=== PATIENT | female | born 1990 | race Caucasian/White ===

== ENCOUNTER 2020-02-02 11:38 | Emergency (ER) | payer OTHER ==
[2020-02-02 12:02] VITALS: RESP 18; TEMP 97.3
--- NOTE | 2020-02-02 12:12 | ED ---
General Adult HPI - General Chief complaint: Psychiatric Symptoms Stated complaint: Mental Health Time Seen by Provider: 02/02/20 11:47 Source: patient, police, RN notes reviewed, old records reviewed Mode of arrival: EMS Limitations: no limitations - History of Present Illness Initial comments: 29-year-old female patient to ED for psychiatric evaluation. Patient reports that she was previously a methamphetamine user however has not been using for over one week. She reports that her grandmother has been condescending to her and it upset her and that this morning she posted on Facebook that she wanted to kill herself. She denies any current suicidal homicidal ideations. Reports that she was just upset. Denies any plan. Denies any physical complaints. Denies . Systemic: Pt denies fatigue, fever/chills, rash. Pt denies weakness, night sweats, weight loss. Neuro: Pt denies headache, visual disturbances, syncope or pre-syncope. HEENT: Pt denies ocular discharge or irritation, otalgia, rhinorrhea, pharyngitis or notable lymphadenopathy. Cardiopulmonary: Pt denies chest pain, SOB, heart palpitations, dyspnea on exertion. Abdominal/GI: Pt denies abdominal pain, n/v/d. : Pt denies dysuria, burning w/ urination, frequency/urgency. Denies new onset urinary or bowel incontinence. MSK: Pt denies myalgia, loss of strength or function in extremities. Neuro: Pt denies new onset weakness, paresthesias. - Related Data Home Medications Medication Instructions Recorded Confirmed No Known Home Medications 02/02/20 02/02/20 Allergies Allergy/AdvReac Type Severity Reaction Status Date / Time No Known Allergies Allergy Verified 02/02/20 12:21 Review of Systems ROS Statement: Those systems with pertinent positive or pertinent negative responses have been documented in the HPI. ROS Other: All systems not noted in ROS Statement are negative. Past Medical History Past Medical History: No Reported History History of Any Multi-Drug Resistant Organisms: None Reported Additional Past Surgical History / Comment(s): bladder surgery, eye surgery Past Psychological History: Anxiety, Depression Smoking Status: Current every day smoker Past Alcohol Use History: Occasional Past Drug Use History: Marijuana, Methamphetamine General Exam - General Exam Comments Initial Comments: Constitutional: NAD, AOX3, Pt has pleasant affect. HEENT: NC/AT, trachea midline, neck supple, no lymphadenopathy. External ears appear normal, without discharge. Mucous membranes moist. Eyes PERRLA, EOM intact. There is no scleral icterus. No pallor noted. Cardiopulmonary: RRR, no murmurs, rubs or gallops, no JVD noted. Lungs CTAB in anterior and posterior cleary. No peripheral edema. Abdominal exam: Abdomen soft and non-distended. Abdomen non-tender to palpation in all 4 quadrants. Bowel sounds active in LLQ. No hepatosplenomegaly. No ecchymosis Neuro: CN II-XII grossly intact. No nuchal rigidity. No raccon eyes, no tse sign, no hemotympanum. No cervical spinal tenderness. MSK: Full active ROM in upper and lower extremities. Limitations: no limitations Course Vital Signs 02/02/20 11:49 Temperature 97.3 F L Pulse Rate 105 H Respiratory 18 Rate Blood Pressure 128/80 O2 Sat by Pulse 96 Oximetry Medical Decision Making - Medical Decision Making 29 year old female patient to ED with a suicidal statement on facebook. Patient declines any suicidal ideations at this time. Denies any physical complaints. Evaluated by emergency psychiatric services recommended for discharge and outpatient follow-up. Case discussed with Dr. Aguirre Disposition Clinical Impression: Depression Disposition: HOME SELF-CARE Condition: Stable Instructions (If sedation given, give patient instructions): Depression (ED) Additional Instructions: Follow up with [facility] and outpatient services as directed. Follow up with PCP in 1- 2 days. Return to ED with any worsening symptoms. Is patient prescribed a controlled substance at d/c from ED?: No Referrals: None,Stated [Primary Care Provider] - 1-2 days
[2020-02-02 14:51] VITALS: BP 118/67; PULSE 87
== END 2020-02-02 14:51 | disposition home or self-care (01) ==
LOC: EC 11:38
DX: R45.851 Suicidal ideations (principal); F32.9 Major depressive disorder, single episode, unspecified; F17.200 Nicotine dependence, unspecified, uncomplicated
CPT/HCPCS: 82075; 99285

== ENCOUNTER → 2021-05-19 | Outpatient (CLI) | payer OTHER ==
--- NOTE | 2021-05-19 15:57 | US ---
EXAMINATION TYPE: US pelvic complete DATE OF EXAM: 05/19/2021 COMPARISON: NONE CLINICAL HISTORY: 31-year-old female N85.2 ENLARGED UTERUS. TECHNIQUE: Transabdominal sonographic images of the pelvis were acquired. Date of LMP: Unknown. Patient states end of march 2021. FINDINGS: EXAM MEASUREMENTS: Uterus: 12.6 x 9.3 x 8.4 cm Endometrial Stripe: 0.7 cm Right Ovary: 2.7 x 1.7 x 1.8 cm Left Ovary: 3.4 x 0.2 x 2.1 cm 1. Uterus: Anteverted. Heterogeneous mass measuring 7.2 x 6.3 x 5.1cm centered within the posterio r fundus/body of the uterus. 2. Endometrium: The large fibroid as mass effect displacing the stripe anteriorly. 3. Right Ovary: wnl 4. Left Ovary: wnl 5. Bilateral Adnexa: wnl 6. Posterior cul-de-sac: wnl IMPRESSION: 1. Large 7.2 cm fibroid centered in the posterior uterine fundus/body has mass effect on to the endom etrial stripe, displacing it anteriorly. Suspect primarily intramural location but probably with a br oad-based submucosal component. 2. Stripe measuring 7 mm
== END | disposition home or self-care (01) ==
LOC: RADUSWWP 12:23
PROVIDERS: ATTEND Obstetrics & Gynecology
DX: D25.9 Leiomyoma of uterus, unspecified (principal)
CPT/HCPCS: 76856

== ENCOUNTER → 2021-11-17 | Outpatient (CLI) | payer OTHER ==
--- NOTE | 2021-11-17 14:45 | US ---
EXAMINATION TYPE: US pelvis complete transvag DATE OF EXAM: 11/17/2021 COMPARISON: 05/19/2021 CLINICAL HISTORY: 31-year-old female D25.9 LEIOMYOMA OF UTERUS. TECHNIQUE: Transabdominal sonographic images of the pelvis were acquired. Transvaginal sonographic i mages were medically necessary to better assess the following anatomy: endometrial stripe. Date of LMP: 11/08/2021 FINDINGS: EXAM MEASUREMENTS: Uterus: 14.4 x 8.7 x 11.0 cm Endometrial Stripe: 0.9 cm Right Ovary: 2.5 x 1.9 x 2.1 cm Left Ovary: 2.6 x 1.7 x 1.8 cm 1. Uterus: Anteverted. Uterus is enlarged and heterogeneous, large posterior fibroid measuring 7.5 x 6.5 x 8.3 cm. This likely has a large submucosal component. 2. Endometrium: displaced anteriorly. 3. Right Ovary: wnl, only seen transabdominally. 4. Left Ovary: wnl, only seen transabdominally. 5. Bilateral Adnexa: wnl 6. Posterior cul-de-sac: no free fluid IMPRESSION: Bulky fibroid uterus. There is a large 8.3 cm fibroid (versus 7.2 cm, previously) filling the posteri or fundus and body with mass effect onto the endometrium displacing it anteriorly. Possible large sub mucosal component. If more detailed assessment is desired, female pelvic MRI can be considered.
== END | disposition home or self-care (01) ==
LOC: RADUSWWP 08:52
PROVIDERS: ATTEND Obstetrics & Gynecology
DX: D25.9 Leiomyoma of uterus, unspecified (principal)
CPT/HCPCS: 76830; 76856

== ENCOUNTER 2024-09-09 17:22 | Inpatient (IN) | payer OTHER ==
--- NOTE | 2024-09-09 18:07 | ED ---
General Adult HPI - General Chief complaint: Extremity Problem,Nontraumatic Stated complaint: Swollen Left Leg Time Seen by Provider: 09/09/24 17:32 Source: patient, family, RN notes reviewed Mode of arrival: ambulatory Limitations: no limitations - History of Present Illness Initial comments: 34-year-old female presents to the emergency department for evaluation of left lower extremity swelling and pain. Patient notes that this started this morning. She states that over the last 3 days she has had some discomfort in her left leg but noticed that it became extremely swollen today this prompted her presentation to urgent care. The patient was sent to the emergency department for further evaluation. - Related Data Previous Rx's Medication Instructions Recorded Apixaban [Eliquis Starter Pack 5 - 10 mg PO DIRECTED 30 Days 09/11/24 (for VTE)] #1 each Allergies Allergy/AdvReac Type Severity Reaction Status Date / Time No Known Allergies Allergy Verified 09/10/24 10:39 Review of Systems ROS Statement: Those systems with pertinent positive or pertinent negative responses have been documented in the HPI. ROS Other: All systems not noted in ROS Statement are negative. Past Medical History Past Medical History: No Reported History Additional Past Medical History / Comment(s): fibroids uterine History of Any Multi-Drug Resistant Organisms: None Reported Additional Past Surgical History / Comment(s): bladder surgery, eye surgery Past Psychological History: Anxiety, Depression Smoking Status: Current every day smoker Past Alcohol Use History: Occasional Past Drug Use History: Marijuana, Methamphetamine General Exam Limitations: no limitations General appearance: alert, in no apparent distress Head exam: Present: atraumatic, normocephalic, normal inspection Eye exam: Present: normal appearance, PERRL, EOMI. Absent: scleral icterus, conjunctival injection, periorbital swelling ENT exam: Present: normal exam, mucous membranes moist Respiratory exam: Present: wheezes. Absent: respiratory distress, rales, rhonchi, stridor Cardiovascular Exam: Present: regular rate, normal rhythm, normal heart sounds. Absent: systolic murmur, diastolic murmur, rubs, gallop, clicks Extremities exam: Present: full ROM, tenderness, normal capillary refill, calf tenderness, other (DP and PT pulses 2+, significant swelling to the left lower extremity). Absent: pedal edema, joint swelling Neurological exam: Present: alert, oriented X3 Psychiatric exam: Present: normal affect, normal mood Skin exam: Present: warm, dry, intact, normal color. Absent: rash Course Vital Signs 09/09/24 09/09/24 17:26 21:37 Temperature 98.9 F Pulse Rate 100 100 Respiratory 20 18 Rate Blood Pressure 101/69 120/78 O2 Sat by Pulse 98 100 Oximetry Medical Decision Making - Medical Decision Making Was pt. sent in by a medical professional or institution (, PA, [employer] PORTAL DEVELOPER, urgent care, hospital, or care home...) When possible be specific @ -No Did you speak to anyone other than the patient for history (EMS, parent, family, police, friend...)? What history was obtained from this source @ -No Did you review nursing and triage notes (agree or disagree)? Why? @ -I reviewed and agree with nursing and triage notes Were old charts reviewed (outside hosp., previous admission, EMS record, old EKG, old radiological studies, urgent care reports/EKG's, care home records)? Report findings @ -No old charts were reviewed Differential Diagnosis (chest pain, altered mental status, abdominal pain women, abdominal pain men, vaginal bleeding, weakness, fever, dyspnea, syncope, headache, dizziness, GI bleed, back pain, seizure, CVA, palpatations, mental health, musculoskeletal)? @ -Differential Musculoskeletal Muscular strain, contusion, ligament sprain, fracture, arthritis, septic arthritis, bursitis, cellulitis, muscle spasm, nerve compression, DVT, arterial occlusion, herpes zoster, electrolyte abnormality, tumor.... This is not meant to be in all inclusive list EKG interpreted by me (3pts min.). @ -EKG@1941 to sinus rhythm rate of 90, GA 150, QRS 85, QT/QTc 347/395 X-rays interpreted by me (1pt min.). @ -None done CT interpreted by me (1pt min.). @ -CTA of the chest reveals no evidence of PE U/S interpreted by me (1pt. min.). @ -Ultrasound of the left lower extremity reveals DVT of the common iliac, and common femoral, femoral vein, popliteal vein and the proximal calf veins. What testing was considered but not performed or refused? (CT, X-rays, U/S, labs)? Why? @ -None What meds were considered but not given or refused? Why? @ -None Did you discuss the management of the patient with other professionals (professionals i.e. , PA, [employer] PORTAL DEVELOPER, lab, RT, psych nurse, oncology social work, product design manager, teacher, risk control officer, caser up)? Give summary @ -I discussed the case with vascular surgery, Dr. Hernandez who recommends admission with heparin drip Case discussed with [facility] was accepting of the admission Was smoking cessation discussed for >3mins.? @ -No Was critical care preformed (if so, how long)? @ -No Were there social determinants of health that impacted care today? How? (Homelessness, low income, unemployed, alcoholism, drug addiction, transpor tation, low edu. Level, literacy, decrease access to med. care, care home, rehab)? @ -No Was there de-escalation of care discussed even if they declined (Discuss DNR or withdrawal of care, Hospice)? DNR status @ -No What co-morbidities impacted this encounter? (DM, HTN, Smoking, COPD, CAD, Cancer, CVA, ARF, Chemo, Hep., AIDS, mental health diagnosis, sleep apnea, morbid obesity)? @ -None Was patient admitted / discharged? Hospital course, mention meds given and route, prescriptions, significant lab abnormalities, going to OR and other pertinent info. @ -Admitted. Patient presented emergency department for evaluation of left lower extremity pain and swelling. Laboratory studies obtained revealing anemia with a hemoglobin of 7.9. Otherwise nonactionable. Ultrasound of the left lower extremity reveals an extensive DVT from the common iliac, common femoral, femoral vein. CTA of the chest performed revealing no evidence of PE. I discussed case with vascular surgery, Dr. Hernandez who recommends admission and placing the patient on a heparin drip. The case was discussed with [facility] was ac cepting of the admission. Case discussed with Dr. Johnson Undiagnosed new problem with uncertain prognosis? @ -No Drug Therapy requiring intensive monitoring for toxicity (Heparin, Nitro, Insulin, Cardizem)? @ -heparin drip Were any procedures done? @ -No Diagnosis/symptom? @ -DVT Acute, or Chronic, or Acute on Chronic? @ -Acute Uncomplicated (without systemic symptoms) or Complicated (systemic symptoms)? @ -Complicated Side effects of treatment? @ -No Exacerbation, Progression, or Severe Exacerbation? @ -No Poses a threat to life or bodily function? How? (Chest pain, USA, ID, pneumonia, PE, COPD, DKA, ARF, appy, cholecystitis, CVA, Diverticulitis, Homicidal, Suicidal, threat to staff... and all critical care pts) @ -DVT - Lab Data Result diagrams: 09/13/24 06:35 09/12/24 05:57 Lab Results 09/09/24 09/09/24 09/09/24 Range/Units 18:33 18:33 18:33 WBC 9.52 (4.50-10.00) 10*3/uL RBC 3.70 L (4.10-5.20) 10*6/uL Hgb 7.9 L (12.0-15.0) g/dL Hct 25.7 L (37.2-46.3) % MCV 69.5 L (80.0-97.0) fL MCH 21.4 L (27.0-32.0) pg MCHC 30.7 L (32.0-37.0) g/dL Plt Count 354 (140-440) 10*3/uL MPV 8.9 L (9.5-12.2) fL Immature Gran % (Auto) 0.3 % Neutrophils % 67.7 % Lymphocytes % 23.5 % Monocytes % 4.8 % Eosinophils % 3.5 % Basophils % 0.2 % Immature Gran # 0.03 (0.00-0.04) 10*3/uL Neutrophils # 6.44 (1.80-7.70) 10*3/uL Lymphocytes # 2.24 (0.90-5.00) 10*3/uL Monocytes # 0.46 (0.20-1.00) 10*3/uL Eosinophils # 0.33 (0.04-0.35) 10*3/uL Basophils # 0.02 (0.00-0.10) 10*3/uL PT 10.7 (10.0-12.5) sec INR 1.0 (<1.2) APTT 22.1 (22.0-30.0) sec Sodium 137 (137-145) mmol/L Potassium 3.8 (3.5-5.1) mmol/L Chloride 102 (98-107) mmol/L Carbon Dioxide 21 L (22-30) mmol/L Anion Gap 14 mmol/L BUN 14 (7-17) mg/dL Creatinine 0.64 (0.52-1.04) mg/dL Est GFR (CKD-EPI)AfAm >90 (>60 ml/min/1.73 sqM) Est GFR (CKD-EPI)NonAf >90 (>60 ml/min/1.73 sqM) Glucose 92 (74-99) mg/dL Calcium 10.3 H (8.4-10.2) mg/dL Total Bilirubin 0.4 (0.2-1.3) mg/dL AST 19 (14-36) U/L ALT 13 (4-34) U/L Alkaline Phosphatase 69 (38-126) U/L Total Protein 7.6 (6.3-8.2) g/dL Albumin 4.7 (3.5-5.0) g/dL Urine HCG, Qual (Not Detectd) 09/09/24 Range/Units 19:13 WBC (4.50-10.00) 10*3/uL RBC (4.10-5.20) 10*6/uL Hgb (12.0-15.0) g/dL Hct (37.2-46.3) % MCV (80.0-97.0) fL MCH (27.0-32.0) pg MCHC (32.0-37.0) g/dL Plt Count (140-440) 10*3/uL MPV (9.5-12.2) fL Immature Gran % (Auto) % Neutrophils % % Lymphocytes % % Monocytes % % Eosinophils % % Basophils % % Immature Gran # (0.00-0.04) 10*3/uL Neutrophils # (1.80-7.70) 10*3/uL Lymphocytes # (0.90-5.00) 10*3/uL Monocytes # (0.20-1.00) 10*3/uL Eosinophils # (0.04-0.35) 10*3/uL Basophils # (0.00-0.10) 10*3/uL PT (10.0-12.5) sec INR (<1.2) APTT (22.0-30.0) sec Sodium (137-145) mmol/L Potassium (3.5-5.1) mmol/L Chloride (98-107) mmol/L Carbon Dioxide (22-30) mmol/L Anion Gap mmol/L BUN (7-17) mg/dL Creatinine (0.52-1.04) mg/dL Est GFR (CKD-EPI)AfAm (>60 ml/min/1.73 sqM) Est GFR (CKD-EPI)NonAf (>60 ml/min/1.73 sqM) Glucose (74-99) mg/dL Calcium (8.4-10.2) mg/dL Total Bilirubin (0.2-1.3) mg/dL AST (14-36) U/L ALT (4-34) U/L Alkaline Phosphatase (38-126) U/L Total Protein (6.3-8.2) g/dL Albumin (3.5-5.0) g/dL Urine HCG, Qual Not Detected (Not Detectd) Disposition Clinical Impression: DVT (deep venous thrombosis) Disposition: ADMITTED IP TO THIS [facility] Condition: Stable Is patient prescribed a controlled substance at d/c from ED?: No
[2024-09-09 19:00] LABS: Basophils # (A) 0.02 10*3/uL (0.00-0.10); Basophils % (A) 0.2 %; Eosinophils # (A) 0.33 10*3/uL (0.04-0.35); Eosinophils % (A) 3.5 %; HCT 25.7 % (37.2-46.3); HGB 7.9 g/dL (12.0-15.0); Lymphocytes # (A) 2.24 10*3/uL (0.90-5.00); Lymphocytes % (A) 23.5 %; MCH 21.4 pg (27.0-32.0); MCHC 30.7 g/dL (32.0-37.0); MCV 69.5 fL (80.0-97.0); Monocytes # (A) 0.46 10*3/uL (0.20-1.00); Monocytes % (A) 4.8 %; Neutrophils # (A) 6.44 10*3/uL (1.80-7.70); Neutrophils % (A) 67.7 %; Platelet Count 354 10*3/uL (140-440); RBC 3.70 10*6/uL (4.10-5.20); RDW 18.8 % (11.5-14.5); WBC 9.52 10*3/uL (4.50-10.00)
[2024-09-09 19:10] LABS: INR 1.0 (<1.2); Partial Thromboplastin Time 22.1 sec (22.0-30.0); Prothrombin Time 10.7 sec (10.0-12.5)
[2024-09-09 19:14] LABS: ALT 13 U/L (4-34); AST 19 U/L (14-36); African American GFR (CKD) >90 (>60 ml/min/1.73 sqM); Albumin 4.7 g/dL (3.5-5.0); Alkaline Phosphatase 69 U/L (38-126); Anion Gap 14 mmol/L; Blood Urea Nitrogen 14 mg/dL (7-17); Calcium 10.3 mg/dL (8.4-10.2); Carbon Dioxide 21 mmol/L (22-30); Chloride 102 mmol/L (98-107); Glucose 92 mg/dL (74-99); Non-African American GFR(CKD) >90 (>60 ml/min/1.73 sqM); Potassium 3.8 mmol/L (3.5-5.1); Sodium 137 mmol/L (137-145); Total Protein 7.6 g/dL (6.3-8.2)
--- NOTE | 2024-09-09 21:00 | US ---
EXAMINATION TYPE: US venous doppler duplex LE LT DATE OF EXAM: 09/09/2024 8:46 PM COMPARISON: NONE CLINICAL INDICATION: Female, 34 years old with history of swelling, pain; Left leg pain and swelling TECHNIQUE: The lower extremity deep venous system is examined utilizing real time linear array sonog jasmyn with graded compression, doppler sonography and color-flow sonography. Grayscale, color doppler , spectral doppler imaging performed of the deep veins of the lower extremities FINDINGS: SIDE PERFORMED: Left VESSELS IMAGED: Common Femoral Vein Deep Femoral Vein Greater Saphenous Vein * Femoral Vein Popliteal Vein Small Saphenous Vein * Proximal Calf Veins (* superficial vessels) Left Leg: Occlusive thrombus involving the left external iliac vein, common femoral vein, femoral ve in and popliteal veins. Additionally, there is occlusive thrombus in the visualized proximal calf vei ns. IMPRESSION: Occlusive deep vein thrombosis throughout the left lower extremity as described above. [facility], , 09/09/2024 8:58 PM
[2024-09-09] MEDS: SODIUM CHLORIDE 0.9% 1,000 ML IV ONE (21:22)
--- NOTE | 2024-09-09 22:17 | CT ---
EXAMINATION TYPE: CT chest angio for PE DATE OF EXAM: 09/09/2024 9:36 PM COMPARISON: None. CLINICAL INDICATION: Female, 34 years old with history of +DVT, dyspnea; +DVT, dyspnea TECHNIQUE/CONTRAST: CTA scan of the thorax is performed with IV Contrast, patient injected with 100 ml mL of Isovue 370, MIP images are created and reviewed these are created on a separate workstation.. CT DLP: 226 mGycm, Automated exposure control for dose reduction was used. FINDINGS: Pulmonary Artery: There is no evidence for a filling defect within the pulmonary vasculature to sugge st acute pulmonary embolism. The pulmonary artery is of normal size. Internal note of a ductus dive rticulum. Lungs/Pleura: No evidence of focal consolidation, pleural effusion or pneumothorax. Airway: Large airways are patent. Heart: Heart is within normal limits for size. Vasculature: No evidence of aortic aneurysm. Mediastinum: No gross evidence of adenopathy. Musculoskeletal: No acute osseous abnormalities Soft Tissues/lymph nodes: Unremarkable. Lower neck: No significant findings. Upper Abdomen: No significant findings. IMPRESSION: No evidence of acute pulmonary embolism or acute pulmonary pathology. [facility], , 09/09/2024 10:14 PM
[2024-09-09] MEDS ORDERED: HEPARIN SODIUM 1,000 UN/ML (10ML VL) IV PRN (22:37)
[2024-09-09] MEDS ORDERED: NALOXONE 0.4 MG/ML 1 ML VIAL IV PRN (22:51)
[2024-09-09] MEDS ORDERED: ONDANSETRON 4 MG/2 ML VIAL IVP PRN (22:51)
[2024-09-09] MEDS ORDERED: HYDROmorphone 1 MG/ML 1 ML SYRINGE IVP PRN (22:51)
[2024-09-09] MEDS: HEPARIN SODIUM 1,000 UN/ML (10ML VL) IV ONE (23:36)
[2024-09-09] MEDS: HEPARIN SOD,PORK IN 0.45% NACL 25,000 UNIT in 0.45% NACL 1 250ML.BAG IV SCH (23:37)
[2024-09-09] MEDS: NICOTINE 14MG/24HR PATCH TRANSDERM STA (23:39)
[2024-09-10] MEDS: HYDROmorphone 0.5 MG/0.5 ML SYRINGE IVP PRN (01:15)
[2024-09-10 06:35] LABS: Basophils # (A) 0.01 10*3/uL (0.00-0.10); Basophils % (A) 0.1 %; Eosinophils # (A) 0.33 10*3/uL (0.04-0.35); Eosinophils % (A) 3.3 %; HCT 21.9 % (37.2-46.3); Lymphocytes # (A) 3.54 10*3/uL (0.90-5.00); Lymphocytes % (A) 35.3 %; MCH 21.9 pg (27.0-32.0); MCHC 31.1 g/dL (32.0-37.0); MCV 70.6 fL (80.0-97.0); Monocytes # (A) 0.49 10*3/uL (0.20-1.00); Monocytes % (A) 4.9 %; Neutrophils # (A) 5.63 10*3/uL (1.80-7.70); Neutrophils % (A) 56.1 %; Platelet Count 332 10*3/uL (140-440); RBC 3.10 10*6/uL (4.10-5.20); RDW 18.6 % (11.5-14.5); WBC 10.03 10*3/uL (4.50-10.00)
[2024-09-10 06:48] LABS: HGB 6.8 g/dL (12.0-15.0)
[2024-09-10 11:15] LABS: HCT 23.1 % (37.2-46.3); HGB 7.0 g/dL (12.0-15.0); MCH 21.4 pg (27.0-32.0); MCHC 30.3 g/dL (32.0-37.0); MCV 70.6 fL (80.0-97.0); Platelet Count 329 10*3/uL (140-440); RBC 3.27 10*6/uL (4.10-5.20); RDW 18.6 % (11.5-14.5); WBC 11.15 10*3/uL (4.50-10.00)
[2024-09-10] MEDS: PANTOPRAZOLE 40 MG/10 ML VIAL IVP SCH (12:06)
--- NOTE | 2024-09-10 13:53 | P.CONS ---
History of Present Illness - Reason for Consult Consult date: 09/10/24 DVT - Chief Complaint Left leg swelling - History of Present Illness Ms. Kulkarni is a 34-year-old woman with a past medical history significant for uterine fibroids for whom hematology is consulted with regards to DVT of the left lower extremity. She noted progressive swelling of the left lower extr emity over the past 3 to 4 days. She initially presented to urgent care and was advised to present to the ED for additional evaluation. Duplex of the left lower extremity revealed occlusive thrombus involving the left external iliac, common femoral, femoral, and popliteal veins in addition to occlusive thrombus in the visualized proximal calf veins. CTA of the chest revealed no evidence of pulmonary embolism. CBC revealed microcytic hypochromic anemia with hemoglobin 7.9 (MCV 69.5, MCH 21.4), WBC 9.52, platelets 354. CMP revealed no acute metabolic abnormalities. She was started on heparin drip with bolus in addition to 1 L bolus of normal saline and admitted to internal medicine for additional management. She has received 0.5 mg of IV Dilaudid x 3 for pain secondary to DVT. Vascular surgery has also been consulted. Hemoglobin this morning was 6.8 with repeat hemoglobin being 7 with 1 unit of packed red blood cells being ordered. Prior to admission, she denies any recent illness, prolonged travel, or trauma. She does have heavy menstrual cycles requiring exchange of pads/tampons every other hour, but denies use of any oral or implantable estrogen-based contraceptives. She denies any prior personal or family history of VTE. She denies any prior episodes of spontaneous miscarriages. She does smoke cigarettes. Review of Systems 14 point review of systems was conducted with pertinent positives and negatives as noted per HPI 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 Medications and Allergies Home Medications Medication Instructions Recorded Confirmed Type No Known Home Medications 02/02/20 09/10/24 History Allergies Allergy/AdvReac Type Severity Reaction Status Date / Time No Known Allergies Allergy Verified 09/10/24 10:39 Physical Exam Vitals: Vital Signs Temp Pulse Pulse Resp BP BP Pulse Ox 09/10/24 09:53 91 14 09/10/24 09:21 91 14 94/61 98 09/10/24 07:15 99/57 09/10/24 04:00 93 14 94/61 99 09/10/24 00:51 98.4 F 97 14 109/69 100 09/10/24 00:23 99.3 F 100 18 117/66 99 09/09/24 21:37 100 18 120/78 100 09/09/24 17:26 98.9 F 100 20 101/69 98 Intake and Output 09/09/24 09/10/24 09/10/24 22:59 06:59 14:59 Intake Total 81.012 0 Balance 81.012 0 Intake: Intake, IV Titration 81.012 0 Amount Heparin Sod,Pork in 0.45% 81.012 0 NaCl 25,000 unit In 0.45 % NaCl 1 250ml.bag @ 18 UNITS/KG/HR 11.022 mls/hr IV .[id number] [facility] Rx#: [id number] Other: Voiding Method Bedside Commode Bedside Commode # Voids 3 Weight 61.235 kg 67.2 kg - Constitutional General appearance: cooperative, no acute distress - EENT No glossitis or scalloped tongue. Pale mucous membranes noted Eyes: EOMI - Respiratory Respiratory: bilateral: CTA - Cardiovascular Rhythm: regular leg Peripheral Edema: left: 2+ - Gastrointestinal General gastrointestinal: no distended, soft - Integumentary Integumentary: pale - Neurologic Neurologic: CNII-XII intact Results CBC & Chem 7: 09/10/24 11:01 09/09/24 18:33 Labs: Abnormal Lab Results - Last 24 Hours (Table) 09/09/24 09/09/24 09/10/24 Range/Units 18:33 18:33 05:42 WBC 10.03 H (4.50-10.00) 10*3/uL RBC 3.70 L 3.10 L (4.10-5.20) 10*6/uL Hgb 7.9 L 6.8 L* (12.0-15.0) g/dL Hct 25.7 L 21.9 L (37.2-46.3) % MCV 69.5 L 70.6 L (80.0-97.0) fL MCH 21.4 L 21.9 L (27.0-32.0) pg MCHC 30.7 L 31.1 L (32.0-37.0) g/dL MPV 8.9 L (9.5-12.2) fL APTT (22.0-30.0) sec Carbon Dioxide 21 L (22-30) mmol/L Calcium 10.3 H (8.4-10.2) mg/dL Crossmatch 09/10/24 09/10/24 09/10/24 Range/Units 05:42 07:22 11:01 WBC 11.15 H (4.50-10.00) 10*3/uL RBC 3.27 L (4.10-5.20) 10*6/uL Hgb 7.0 L (12.0-15.0) g/dL Hct 23.1 L (37.2-46.3) % MCV 70.6 L (80.0-97.0) fL MCH 21.4 L (27.0-32.0) pg MCHC 30.3 L (32.0-37.0) g/dL MPV 9.0 L (9.5-12.2) fL APTT 79.0 H (22.0-30.0) sec Carbon Dioxide (22-30) mmol/L Calcium (8.4-10.2) mg/dL Crossmatch See Detail Assessment and Plan (1) Microcytic hypochromic anemia Current Visit: Yes Status: Acute Code(s): D50.9 - IRON DEFICIENCY ANEMIA, UNSPECIFIED SNOMED Code(s): 44040138 (2) DVT (deep venous thrombosis) Current Visit: Yes Status: Acute Code(s): I82.409 - ACUTE EMBOLISM AND THOMBOS UNSP DEEP VN UNSP LOWER EXTREMITY SNOMED Code(s): 559807398 Plan: #DVT of the left lower extremity, unprovoked - Noted progressive swelling of the left lower extremity over the past 3 to 4 days without any inciting factors - Venous Doppler of the left lower extremity was consistent with DVT of multiple deep veins extending down the leg - CTA of the chest was negative for PE - We did discuss the difference between provoked and unprovoked VTE episodes and the difference this makes in terms of duration of anticoagulation - In addition, she has no known family history of VTE - For now, continue heparin drip pending vascular surgery consultation - If there are no interventions planned, she can be transition to Eliquis twice daily - Hypercoagulable testing will be ordered outpatient - APLS labs will be ordered inpatient today #Microcytic hypochromic anemia - Likely has iron deficiency anemia secondary to menorrhagia - 1 unit of packed red blood cells has been ordered per the primary team - Iron studies in addition to vitamin B12, folic acid, and thyroid profile have been ordered - In the past, she could not tolerate oral iron due to significant nausea and constipation - We discussed that as long as her iron saturation is below 20%, we will arrange for IV iron outpatient Lakesha Stroud MD
--- NOTE | 2024-09-10 15:02 | P.HPIM ---
History of Present Illness H&P Date: 09/10/24 34-year-old female presents to the emergency department for evaluation of left lower extremity swelling and pain. Patient notes that this started this morning. She states that over the last 3 days she has had some discomfort in her left leg but noticed that it became extremely swollen today this prompted her presentation to urgent care. The patient was sent to the emergency department for further evaluation. Vascular surgery and hematology is consulted Blood work completed in the ED reveals WBC of 9.5, hemoglobin of 7.9, platelet count of 354, sodium 137, potassium 3.8, BUN/creatinine 14/0.64, calcium of 10.3 Ultrasound of the left lower extremity reveals an extensive DVT from the common iliac, common femoral, femoral vein. CTA of the chest performed revealing no evidence of PE. Review of Systems REVIEW OF SYSTEMS: CONSTITUTIONAL: No fever, no malaise, no fatigue. HEENT: No recent visual problems or hearing problems. Denied any sore throat. CARDIOVASCULAR: No chest pain, orthopnea, PND, no palpitations, no syncope. PULMONARY: No shortness of breath, no cough, no hemoptysis. GASTROINTESTINAL: No diarrhea, no nausea, no vomiting, no abdominal pain. NEUROLOGICAL: No headaches, no weakness, no numbness. HEMATOLOGICAL: Denies any bleeding or petechiae. GENITOURINARY: Denies any burning micturition, frequency, or urgency. MUSCULOSKELETAL/RHEUMATOLOGICAL: Pain and swelling left leg. ENDOCRINE: Denies any polyuria or polydipsia. The rest of the 14-point review of systems is negative. 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 Medications and Allergies Home Medications Medication Instructions Recorded Confirmed Type No Known Home Medications 02/02/20 09/10/24 History Allergies Allergy/AdvReac Type Severity Reaction Status Date / Time No Known Allergies Allergy Verified 09/10/24 10:39 Physical Exam Vitals: Vital Signs Temp Pulse Pulse Resp BP BP Pulse Ox 09/10/24 09:53 91 14 09/10/24 09:21 91 14 94/61 98 09/10/24 07:15 99/57 09/10/24 04:00 93 14 94/61 99 09/10/24 00:51 98.4 F 97 14 109/69 100 09/10/24 00:23 99.3 F 100 18 117/66 99 09/09/24 21:37 100 18 120/78 100 09/09/24 17:26 98.9 F 100 20 101/69 98 Intake and Output 09/09/24 09/10/24 09/10/24 22:59 06:59 14:59 Intake Total 81.012 0 Balance 81.012 0 Intake: Intake, IV Titration 81.012 0 Amount Heparin Sod,Pork in 0.45% 81.012 0 NaCl 25,000 unit In 0.45 % NaCl 1 250ml.bag @ 18 UNITS/KG/HR 11.022 mls/hr IV .[id number] [facility] Rx#: [id number] Other: Voiding Method Bedside Commode Bedside Commode # Voids 3 Weight 61.235 kg 67.2 kg General appearance: alert, in no apparent distress Head exam: Present: atraumatic, normocephalic, normal inspection Eye exam: Present: normal appearance, PERRL, EOMI. Absent: scleral icterus, conjunctival injection, periorbital swelling ENT exam: Present: normal exam, mucous membranes moist Respiratory exam: Present: wheezes. Absent: respiratory distress, rales, rhonchi, stridor Cardiovascular Exam: Present: regular rate, normal rhythm, normal heart sounds. Absent: systolic murmur, diastolic murmur, rubs, gallop, clicks Extremities exam: Present: full ROM, tenderness, normal capillary refill, calf tenderness, other (DP and PT pulses 2+, significant swelling to the left lower extremity). Absent: pedal edema, joint swelling Neurological exam: Present: alert, oriented X3 Psychiatric exam: Present: normal affect, normal mood Skin exam: Present: warm, dry, intact, normal color. Absent: rash Results CBC & Chem 7: 09/10/24 11:01 09/09/24 18:33 Labs: Abnormal Lab Results - Last 24 Hours (Table) 09/09/24 09/09/24 09/10/24 Range/Units 18:33 18:33 05:42 WBC 10.03 H (4.50-10.00) 10*3/uL RBC 3.70 L 3.10 L (4.10-5.20) 10*6/uL Hgb 7.9 L 6.8 L* (12.0-15.0) g/dL Hct 25.7 L 21.9 L (37.2-46.3) % MCV 69.5 L 70.6 L (80.0-97.0) fL MCH 21.4 L 21.9 L (27.0-32.0) pg MCHC 30.7 L 31.1 L (32.0-37.0) g/dL MPV 8.9 L (9.5-12.2) fL APTT (22.0-30.0) sec Carbon Dioxide 21 L (22-30) mmol/L Calcium 10.3 H (8.4-10.2) mg/dL Crossmatch 09/10/24 09/10/24 Range/Units 05:42 07:22 WBC (4.50-10.00) 10*3/uL RBC (4.10-5.20) 10*6/uL Hgb (12.0-15.0) g/dL Hct (37.2-46.3) % MCV (80.0-97.0) fL MCH (27.0-32.0) pg MCHC (32.0-37.0) g/dL MPV (9.5-12.2) fL APTT 79.0 H (22.0-30.0) sec Carbon Dioxide (22-30) mmol/L Calcium (8.4-10.2) mg/dL Crossmatch See Detail Thrombosis Risk Factor Assmnt - Choose All That Apply Any of the Below Risk Factors Present?: Yes Each Factor Represents 1 point: Obesity (BMI >25), Swollen legs (current) Other Risk Factors: No Other congenital or acquired thrombophilia - If yes, enter type in comment: No Thrombosis Risk Factor Assessment Total Risk Factor Score: 2 Thrombosis Risk Factor Assessment Level: Low Risk Assessment and Plan Assessment: Acute DVT left lower extremity; unprovoked Ultrasound of the left lower extremity reveals an extensive DVT from the common iliac, common femoral, femoral vein. - Patient has been placed on IV heparin; neurosurgery on board - Given young age and unprovoked extensive DVT, will consult hematology Severe symptomatic anemia; Patient does report history of iron deficiency anemia secondary to menorrhagia -Patient has received 1 unit of packed RBC - Hemoglobin of 7.2 prior to blood transfusion Will monitor H&H every 6 hours Order iron studies Hypercalcemia; likely secondary to dehydration; continue with IV fluid; monitor electrolytes DVT prophylax; IV heparin CODE STATUS; full code
[2024-09-10 17:36] LABS: HCT 27.6 % (37.2-46.3); HGB 8.5 g/dL (12.0-15.0); MCH 22.2 pg (27.0-32.0); MCHC 30.8 g/dL (32.0-37.0); MCV 72.1 fL (80.0-97.0); Platelet Count 339 10*3/uL (140-440); RBC 3.83 10*6/uL (4.10-5.20); RDW 18.7 % (11.5-14.5); WBC 8.71 10*3/uL (4.50-10.00)
--- NOTE | 2024-09-10 19:54 | P.PN ---
Progress Note - Text Progress Note Date: 09/10/24 Reviewed ultrasound of the lower extremity. Significant thrombus noted extending from the iliac vein to the tibial veins with symptoms. Patient may benefit from thrombectomy which may be performed tomorrow if medically stable. Would continue heparin drip as of now and will discuss procedure with patient tomorrow morning. If stable from a medical perspective then would plan for possible percutaneous thrombectomy tomorrow.
[2024-09-10 23:14] LABS: HCT 24.5 % (37.2-46.3); HGB 7.8 g/dL (12.0-15.0); MCH 22.5 pg (27.0-32.0); MCHC 31.8 g/dL (32.0-37.0); MCV 70.6 fL (80.0-97.0); Platelet Count 311 10*3/uL (140-440); RBC 3.47 10*6/uL (4.10-5.20); RDW 18.4 % (11.5-14.5); WBC 9.75 10*3/uL (4.50-10.00)
[2024-09-11 00:27] LABS: Ferritin 7.9 ng/mL (10.0-291.0); Iron 13 UG/DL (50-170); Total Iron Binding Capacity 466 UG/DL (228-460); Vitamin B12 557.0 pg/mL (200.0-944.0)
[2024-09-11 06:25] LABS: HCT 25.1 % (37.2-46.3); HGB 7.8 g/dL (12.0-15.0); MCH 22.0 pg (27.0-32.0); MCHC 31.1 g/dL (32.0-37.0); MCV 70.7 fL (80.0-97.0); Platelet Count 305 10*3/uL (140-440); RBC 3.55 10*6/uL (4.10-5.20); RDW 18.6 % (11.5-14.5); WBC 9.33 10*3/uL (4.50-10.00)
--- NOTE | 2024-09-11 10:33 | P.GSCN ---
History of Present Illness Consult date: 09/11/24 Reason for Consult: Left lower extremity DVT Requesting physician: Olivia Roman History of present illness: This a pleasant 34-year-old female with a past medical history including chronic anemia secondary to menorrhagia, uterine fibroids, daily smoker, anxiety and depression who presented to the emergency department with complaints of left lower extremity pain and swelling. Patient states Wednesday she started getting lower extremity pain and swelling she came in to the emergency department for further evaluation. She had a venous duplex with extensive clot. Vascular surgery was consulted secondary to left lower extremity DVT. Patient was noted to be anemic on admission with a hemoglobin of 6.8 and was transfused 1 unit of blood. He hematology was also consulted secondary to anemia and DVT. Patient denies any recent injury, no recent travel, no history of previous deep vein thrombosis or clotting disorder, and no family history of clotting disorder. She denies being on control pills. She is a daily smoker. Apparently patient had been on oral iron in the past secondary to her anemia but it is caused upset stomach and she has not been taking it. Today's hemoglobin is 7.8. Patient is currently on her menstrual cycle. Review of Systems A 14 point review systems was completed all pertinent positives and negatives as stated in the HPI. 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 HET: Head is normocephalic and atraumatic. Pupils are equal and reactive. Neck: Supple. Heart: Regular. Lungs: Equal expansion, normal respiratory effort. Abdomen: Soft, nontender, nondistended. Extremities: Normal skin color and turgor. Left lower extremity swelling from thigh down to toes. PT and DP signal present. Difficult to palpate DP pulse secondary to swelling. Neurological: No focal deficits. Strength and sensation are grossly intact. Results - Labs 09/11/24 05:45 09/09/24 18:33 Abnormal Lab Results - Last 24 Hours (Table) 09/10/24 09/10/24 09/10/24 Range/Units 07:22 11:01 12:47 WBC 11.15 H (4.50-10.00) 10*3/uL RBC 3.27 L (4.10-5.20) 10*6/uL Hgb 7.0 L (12.0-15.0) g/dL Hct 23.1 L (37.2-46.3) % MCV 70.6 L (80.0-97.0) fL MCH 21.4 L (27.0-32.0) pg MCHC 30.3 L (32.0-37.0) g/dL MPV 9.0 L (9.5-12.2) fL APTT (22.0-30.0) sec Iron 13 L (50-170) UG/DL TIBC 466 H (228-460) UG/DL % Saturation 2.79 L (12.00-45.00) Ferritin 7.9 L (10.0-291.0) ng/mL Crossmatch See Detail 09/10/24 09/10/24 09/10/24 Range/Units 12:47 17:18 22:47 WBC (4.50-10.00) 10*3/uL RBC 3.83 L 3.47 L (4.10-5.20) 10*6/uL Hgb 8.5 L D 7.8 L (12.0-15.0) g/dL Hct 27.6 L 24.5 L (37.2-46.3) % MCV 72.1 L 70.6 L (80.0-97.0) fL MCH 22.2 L 22.5 L (27.0-32.0) pg MCHC 30.8 L 31.8 L (32.0-37.0) g/dL MPV 9.1 L 9.2 L (9.5-12.2) fL APTT 53.2 H (22.0-30.0) sec Iron (50-170) UG/DL TIBC (228-460) UG/DL % Saturation (12.00-45.00) Ferritin (10.0-291.0) ng/mL Crossmatch 09/11/24 09/11/24 Range/Units 05:45 05:45 WBC (4.50-10.00) 10*3/uL RBC 3.55 L (4.10-5.20) 10*6/uL Hgb 7.8 L (12.0-15.0) g/dL Hct 25.1 L (37.2-46.3) % MCV 70.7 L (80.0-97.0) fL MCH 22.0 L (27.0-32.0) pg MCHC 31.1 L (32.0-37.0) g/dL MPV 9.0 L (9.5-12.2) fL APTT 52.8 H (22.0-30.0) sec Iron (50-170) UG/DL TIBC (228-460) UG/DL % Saturation (12.00-45.00) Ferritin (10.0-291.0) ng/mL Crossmatch Thyroid panel 09/10/24 Range/Units 12:47 TSH 2.750 (0.465-4.680) mIU/L Pituitary panel 09/10/24 Range/Units 12:47 TSH 2.750 (0.465-4.680) mIU/L - Imaging Comments: Venous duplex left lower extremity reports occlusive thrombus involving the left external iliac vein, common femoral vein, femoral vein and popliteal veins. Additionally there is occlusive thrombus in the visualized proximal calf veins. Chest CTA reports no evidence of acute pulmonary embolism or acute pulmonary pathology Assessment and Plan Assessment: 1. Extensive left lower extremity deep vein thrombosis 2. Iron deficiency anemia secondary to menorrhagia 3. Daily smoker Plan: 1. N.p.o. 2. Continue IV heparin drip 3. Plan for left lower extremity thrombectomy today 4. Transfuse 1 unit of blood for hemoglobin of 7.8 5. After procedure patient can be transition to oral anticoagulation Thank you for this consultation, we will continue to follow. The impression and plan of care has been dictated as directed. I performed a history and examination of this patient, discussed the same with the dictator. I agree with the dictator's note ,documented as a scribe. Any additional findings or plans will be noted.
[2024-09-11] MEDS: SODIUM FERRIC GLUCONAT-SUCROSE 125 MG in SODIUM CHLORIDE 0.9% 100 ML IVPB SCH (13:41)
[2024-09-11 14:08] LABS: Cardiolipin Ab IgG Interp Negative (Negative); Cardiolipin Ab IgM Interp Negative (Negative)
--- NOTE | 2024-09-11 19:01 | P.PN ---
Subjective This a pleasant 34-year-old female with a past medical history including chronic anemia secondary to menorrhagia, uterine fibroids, daily smoker, anxiety and depression who presented to the emergency department with complaints of left lower extremity pain and swelling. Patient states Wednesday she started getting lower extremity pain and swelling she came in to the emergency department for further evaluation. She had a venous duplex with extensive clot. Vascular surgery was consulted secondary to left lower extremity DVT. Patient was noted to be anemic on admission with a hemoglobin of 6.8 and was transfused 1 unit of blood. He hematology was also consulted secondary to anemia and DVT. Patient denies any recent injury, no recent travel, no history of previous deep vein thrombosis or clotting disorder, and no family history of clotting disorder. She denies being on control pills. She is a daily smoker. Apparently patient had been on oral iron in the past secondary to her anemia but it is caused upset stomach and she has not been taking it. Today's hemoglobin is 7.8. Patient is currently on her menstrual cycle. 09/11 Patient left leg is warm and swollen and with pain and tenderness 11/01. Patient given thrombectomy today with vascular surgery team. From medical perspective there is no contraindication to proceed. Patient also started on heparin drip and yesterday she had menstrual cycle which is becoming more heavy. Patient states that she has another bleed about 1 week earlier but yesterday came back again no abdominal pain. She does not follow-up with aircraft powertrain repairer as an outpatient and she agrees to see 1 while in house. She is currently kept on heparin drip with plan to switch to oral anticoagulant after the procedure with vascular surgery team Active Medications Generic Name Dose Route Start Last Admin Trade Name Freq PRN Reason Stop Dose Admin Alprazolam 0.25 mg 09/09/24 22:51 Alprazolam 0.25 Mg Tab PO Q6HR PRN Anxiety Heparin Sodium (Porcine) 0 unit 09/09/24 22:37 Heparin Sodium 1,000 Un/Ml (10ml Vl) IV PER PROTOCOL PRN Low PTT Protocol Hydromorphone HCl 0.5 mg 09/09/24 22:51 09/11/24 18:22 Hydromorphone 0.5 Mg/0.5 Ml Syringe IVP 0.5 mg Q3HR PRN Administration Moderate Pain (Scale 4 to 6) Hydromorphone HCl 1 mg 09/09/24 22:51 Hydromorphone 1 Mg/Ml 1 Ml Syringe IVP Q3HR PRN Severe Pain (Scale 7 to 10) Heparin Sodium/Sodium Chloride 250 mls @ 11.022 mls/hr 09/09/24 22:45 09/11/24 18:22 25,000 unit/ Sodium Chloride IV 16 units/kg/hr .[id number] BRIGITTE 9.798 mls/hr Administration Protocol 18 UNITS/KG/HR Ferric Sodium Gluconate 125 mg 110 mls @ 100 mls/hr 09/11/24 12:00 09/11/24 13:41 / Sodium Chloride IVPB 09/14/24 10:05 100 mls/hr DAILY BRIGITTE Administration Naloxone HCl 0.2 mg 09/09/24 22:51 Naloxone 0.4 Mg/Ml 1 Ml Vial IV Q2M PRN Opioid Reversal Ondansetron HCl 4 mg 09/09/24 22:51 Ondansetron 4 Mg/2 Ml Vial IVP Q8HR PRN Nausea And Vomiting Pantoprazole Sodium 40 mg 09/10/24 11:00 09/11/24 08:56 Pantoprazole 40 Mg/10 Ml Vial IVP 40 mg DAILY BRIGITTE Administration Objective - Vital Signs Vital signs: Vital Signs Temp 97.8 F 09/10/24 23:38 Pulse 77 09/11/24 08:00 Resp 18 09/11/24 08:00 BP 100/69 09/11/24 08:00 Pulse Ox 99 09/11/24 08:00 FiO2 Intake & Output 09/10/24 09/11/24 09/11/24 18:59 06:59 18:59 Intake Total 550 Balance 550 Weight 67 kg Intake: Intake, IV Titration 0 Amount Heparin Sod,Pork in 0.45% 0 NaCl 25,000 unit In 0.45 % NaCl 1 250ml.bag @ 18 UNITS/KG/HR 11.022 mls/hr IV .[id number] [facility] Rx#: [id number] Oral 240 Blood Product 310 Rc As-1 Unit 310 [id number] Other: Voiding Method Bedside Commode Bedside Commode # Voids 1 - Exam GENERAL: The patient is alert and oriented x3, not in any acute distress. Well developed, well nourished. HEENT: Pupils are round and equally reacting to light. EOMI. No scleral icterus. No conjunctival pallor. Normocephalic, atraumatic. No pharyngeal erythema. No thyromegaly. CARDIOVASCULAR: S1 and S2 present. No murmurs, rubs, or gallops. PULMONARY: Chest is clear to auscultation, no wheezing , no crackles. ABDOMEN: Soft, nontender, nondistended, normoactive bowel sounds. No palpable organomegaly. MUSCULOSKELETAL: No joint swelling or deformity. -EXTREMITIES: No cyanosis, clubbing, or pedal edema. Left leg is swollen warm and erythematous NEUROLOGICAL: Gross neurological examination did not reveal any focal deficits. SKIN: No rashes. no petechiae. - Labs CBC & Chem 7: 09/11/24 05:45 09/09/24 18:33 Labs: Abnormal Lab Results - Last 24 Hours (Table) 09/10/24 09/10/24 09/10/24 Range/Units 07:22 12:47 12:47 RBC (4.10-5.20) 10*6/uL Hgb (12.0-15.0) g/dL Hct (37.2-46.3) % MCV (80.0-97.0) fL MCH (27.0-32.0) pg MCHC (32.0-37.0) g/dL MPV (9.5-12.2) fL APTT 53.2 H (22.0-30.0) sec Iron 13 L (50-170) UG/DL TIBC 466 H (228-460) UG/DL % Saturation 2.79 L (12.00-45.00) Ferritin 7.9 L (10.0-291.0) ng/mL Crossmatch See Detail 09/10/24 09/10/24 09/11/24 Range/Units 17:18 22:47 05:45 RBC 3.83 L 3.47 L 3.55 L (4.10-5.20) 10*6/uL Hgb 8.5 L D 7.8 L 7.8 L (12.0-15.0) g/dL Hct 27.6 L 24.5 L 25.1 L (37.2-46.3) % MCV 72.1 L 70.6 L 70.7 L (80.0-97.0) fL MCH 22.2 L 22.5 L 22.0 L (27.0-32.0) pg MCHC 30.8 L 31.8 L 31.1 L (32.0-37.0) g/dL MPV 9.1 L 9.2 L 9.0 L (9.5-12.2) fL APTT (22.0-30.0) sec Iron (50-170) UG/DL TIBC (228-460) UG/DL % Saturation (12.00-45.00) Ferritin (10.0-291.0) ng/mL Crossmatch 09/11/24 Range/Units 05:45 RBC (4.10-5.20) 10*6/uL Hgb (12.0-15.0) g/dL Hct (37.2-46.3) % MCV (80.0-97.0) fL MCH (27.0-32.0) pg MCHC (32.0-37.0) g/dL MPV (9.5-12.2) fL APTT 52.8 H (22.0-30.0) sec Iron (50-170) UG/DL TIBC (228-460) UG/DL % Saturation (12.00-45.00) Ferritin (10.0-291.0) ng/mL Crossmatch Assessment and Plan Assessment: Acute DVT left lower extremity; unprovoked Ultrasound of the left lower extremity reveals an extensive DVT from the common iliac, common femoral, femoral vein. - Patient has been placed on IV heparin; neurosurgery on board - Given young age and unprovoked extensive DVT, will consult hematology -S/p mechanical thrombectomy on 09/11 Severe symptomatic anemia; Patient does report history of iron deficiency anemia secondary to menorrhagia -Patient has received 1 unit of packed RBC - Hemoglobin of 7.2 prior to blood transfusion Will monitor H&H every 6 hours Order iron studies Menorrhagia Consult BRAND EXECUTIVE team Hypercalcemia; likely secondary to dehydration; continue with IV fluid; monitor electrolytes DVT prophylax; IV heparin CODE STATUS; full code
--- NOTE | 2024-09-11 20:22 | P.OBCN ---
History of Present Illness Consult date: 09/11/24 Reason for consult: menorrhagia Chief complaint: Leg swelling History of present illness: Ms. Kulkarni is a 34 year old who presented to the ER with left leg swelling and was diagnosed with what was deemed an unprovoked DVT. She is now on heparin and scheduled for surgery tomorrow. She denies any long drives, sede ntary days, or medications that could provoke VTE. OBGYN is consulted for symptomatic anemia secondary to abnormal uterine bleeding. The patient has excessively heavy and frequent menses. LMP was 2 days ago. She states she can have up to "four periods a month" with irregular and frequent bleeding. She has had a pelvic US at [facility] approximately 1 year ago that showed uterine fibroids. She does not follow with an OBGYN but is interested in surgical management of her fibroid uterus with hysterectomy. She does not wish to preserve fertility. OBGYN history: LMP 09/09/2024. History of 1 voluntary termination of . No recent pap smear. Past medical history: patient denies Home medications: none Prior surgeries: bladder surgery (details unknown, done as a child), eye surgery Social History: 1/2 pack per day smoker, otherwise denies 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 Medications and Allergies Home Medications Medication Instructions Recorded Confirmed Type Apixaban [Eliquis Starter Pack 5 - 10 mg PO DIRECTED 30 Days 09/11/24 Rx (for VTE)] #1 each Allergies Allergy/AdvReac Type Severity Reaction Status Date / Time No Known Allergies Allergy Verified 09/10/24 10:39 Exam Vital Signs Temp Pulse Pulse Resp BP BP Pulse Ox 09/11/24 19:55 97.8 F 77 16 100/62 99 09/11/24 19:28 98 F 79 16 94/62 98 09/11/24 18:23 97.9 F 72 18 97/63 97 09/11/24 18:13 97.8 F 87 18 93/57 09/11/24 08:00 77 18 100/69 99 09/11/24 04:00 99 16 100/59 96 09/10/24 23:38 97.8 F 103 H 16 97/63 98 Intake and Output 09/11/24 09/11/24 09/11/24 06:59 14:59 22:59 Intake Total 168.988 310 Balance 168.988 310 Intake: Intake, IV Titration 168.988 Amount Heparin Sod,Pork in 0.45% 168.988 NaCl 25,000 unit In 0.45 % NaCl 1 250ml.bag @ 18 UNITS/KG/HR 11.022 mls/hr IV .[id number] [facility] Rx#: [id number] Blood Product 310 Rc As-1 Unit 310 [id number] Other: Voiding Method Bedside Commode Bedside Commode Weight 67 kg Focused physical exam is performed. The patient is conversing normally. Breathing is non-labored. Abdomen is soft, non-tender. Uterus is palpated up to 2 centimeters below the umbilicus, significantly enlarged. Left extremity edematous and larger than the right. Results Result Diagrams: 09/11/24 05:45 09/09/24 18:33 Abnormal Lab Results - Last 24 Hours (Table) 09/10/24 09/10/24 09/10/24 Range/Units 07:22 12:47 22:47 RBC 3.47 L (4.10-5.20) 10*6/uL Hgb 7.8 L (12.0-15.0) g/dL Hct 24.5 L (37.2-46.3) % MCV 70.6 L (80.0-97.0) fL MCH 22.5 L (27.0-32.0) pg MCHC 31.8 L (32.0-37.0) g/dL MPV 9.2 L (9.5-12.2) fL APTT (22.0-30.0) sec Iron 13 L (50-170) UG/DL TIBC 466 H (228-460) UG/DL % Saturation 2.79 L (12.00-45.00) Ferritin 7.9 L (10.0-291.0) ng/mL Crossmatch See Detail 09/11/24 09/11/24 Range/Units 05:45 05:45 RBC 3.55 L (4.10-5.20) 10*6/uL Hgb 7.8 L (12.0-15.0) g/dL Hct 25.1 L (37.2-46.3) % MCV 70.7 L (80.0-97.0) fL MCH 22.0 L (27.0-32.0) pg MCHC 31.1 L (32.0-37.0) g/dL MPV 9.0 L (9.5-12.2) fL APTT 52.8 H (22.0-30.0) sec Iron (50-170) UG/DL TIBC (228-460) UG/DL % Saturation (12.00-45.00) Ferritin (10.0-291.0) ng/mL Crossmatch Assessment and Plan Assessment: 34 year old with AUB-L Plan: AUB-L. Given current Heparin therapy for DVT and smoking status, the patient is not a candidate for any pharmacotherapy for abnormal uterine bleeding. Suggest tranfusing the patient for Hgb < 7.0. IV iron therapy should be considered to optimize the patient for a potential hysterectomy down the line once medically cleared from current DVT episode. Will order pelvic US. Recommend close outpatient follow up for potential surgical planning. Thank you for this consultation. Please reach out with any further questions. Will sign off of the patient at this time. Time with Patient: Greater than 30
--- NOTE | 2024-09-11 21:32 | US ---
EXAMINATION TYPE: US pelvic complete DATE OF EXAM: 09/11/2024 COMPARISON: US 11/17/21 CLINICAL INDICATION: Female, 34 years old with history of Abnormal uterine bleeding; patient states a bnormal ut bleeding for a year. Hx fibroids TECHNIQUE: Transabdominal (TA). Transabdominal grayscale sonographic images of the pelvis were acquired. Doppler imaging: Color Doppler Images were obtained. Spectral doppler images were obtained. FINDINGS: EXAM MEASUREMENTS: Uterus: 15.1 x 11.6 x 12.8 cm Endometrial Stripe: unable to visualize Right Ovary: Not visualized due to bowel gas. cm Left Ovary: 2.9 x 2.6 x 3.3 cm 1. Uterus: Retroverted enlarged, heterogeneous. Multiple probable fibroids seen within largest measu ring 7.0 x 8.0 x 10.0cm 2. Endometrium: unable to visualize due to presence of fibroids 3. Right Ovary: Obscured by overlying bowel gas 4. Left Ovary: 1.9 x 2.0 x 2.3cm dominant follicle seen within Spectral, color and waveform doppler imaging shows good arterial and venous flow within the visuali zed left o ovary; there is no evidence for ovarian torsion. 5. Bilateral Adnexa: wnl as best seen 6. Posterior cul-de-sac: wnl Retroverted enlarged heterogenous uterus with multiple fibroids. Endometrium is not visualized due to the fibroids. Right ovary is obscured by overlying bowel gas. Left ovary demonstrates a dominant fol licle without evidence for torsion. No free fluid. IMPRESSION: 1. Large fibroid changes of the uterus. Endometrium is not visualized due to the fibroids. Consider direct visualization versus pelvic MRI as clinically indicated. 2. No evidence for left ovarian torsion. Nonvisualization of the right ovary due to overlying bowel gas. [facility], , 09/11/2024 9:30 PM
[2024-09-12 06:36] LABS: Basophils # (A) 0.02 10*3/uL (0.00-0.10); Basophils % (A) 0.2 %; Eosinophils # (A) 0.36 10*3/uL (0.04-0.35); Eosinophils % (A) 4.1 %; HCT 26.4 % (37.2-46.3); HGB 8.3 g/dL (12.0-15.0); Lymphocytes # (A) 2.82 10*3/uL (0.90-5.00); Lymphocytes % (A) 31.9 %; MCH 22.3 pg (27.0-32.0); MCHC 31.4 g/dL (32.0-37.0); MCV 71.0 fL (80.0-97.0); Monocytes # (A) 0.45 10*3/uL (0.20-1.00); Monocytes % (A) 5.1 %; Neutrophils # (A) 5.16 10*3/uL (1.80-7.70); Neutrophils % (A) 58.2 %; Platelet Count 320 10*3/uL (140-440); RBC 3.72 10*6/uL (4.10-5.20); RDW 18.4 % (11.5-14.5); WBC 8.85 10*3/uL (4.50-10.00)
[2024-09-12 06:56] LABS: African American GFR (CKD) >90 (>60 ml/min/1.73 sqM); Anion Gap 11 mmol/L; Blood Urea Nitrogen 10 mg/dL (7-17); Calcium 9.0 mg/dL (8.4-10.2); Carbon Dioxide 21 mmol/L (22-30); Chloride 102 mmol/L (98-107); Glucose 107 mg/dL (74-99); Non-African American GFR(CKD) >90 (>60 ml/min/1.73 sqM); Potassium 3.8 mmol/L (3.5-5.1); Sodium 134 mmol/L (137-145)
[2024-09-12 07:00] LABS: HCG,Qualitative Serum Not Detected
[2024-09-12] MEDS: ALPRAZolam 0.25 MG TAB PO PRN (12:27)
[2024-09-12 13:28] LABS: APTT 155 Sec(s) (<43); APTT 1:1 Mix 84 Sec(s) (<43); Dilute Russell Viper Venom 46 Sec(s) (<44)
[2024-09-12] MEDS: MIDAZOLAM 2 MG/2 ML VIAL IVP ONE (18:32)
[2024-09-12] MEDS: fentaNYL (PF) 50 MCG/ML 2 ML AMP IVP ONE ×2 (18:32→18:51)
[2024-09-12] MEDS: LIDOCAINE 1% INJ 10MG/ML (20 ML MDV) SQ ONE (18:34)
[2024-09-12] MEDS: HEPARIN SODIUM (1,000 UNIT/ML) 1,000 UNIT in SODIUM CHLORIDE 0.9% 1,000 ML IRRIGATION ONE (18:50)
[2024-09-12] MEDS: HEPARIN SODIUM,PORCINE (1 ML) 2,500 UNIT in SODIUM CHLORIDE 0.9% 250 ML IRRIGATION ONE (18:50)
[2024-09-12] MEDS: HEPARIN SODIUM 1,000 UN/ML (10ML VL) IVP ONE ×2 (18:51→18:52)
[2024-09-12] MEDS: IV FLUID CONTINUATION 1,000 ML IV ONE (18:52)
[2024-09-12] MEDS: HYDROmorphone 0.5 MG/0.5 ML SYRINGE IVP ONE ×2 (19:17→19:28)
--- NOTE | 2024-09-12 19:24 | P.PN ---
Subjective This a pleasant 34-year-old female with a past medical history including chronic anemia secondary to menorrhagia, uterine fibroids, daily smoker, anxiety and depression who presented to the emergency department with complaints of left lower extremity pain and swelling. Patient states Wednesday she started getting lower extremity pain and swelling she came in to the emergency department for further evaluation. She had a venous duplex with extensive clot. Vascular surgery was consulted secondary to left lower extremity DVT. Patient was noted to be anemic on admission with a hemoglobin of 6.8 and was transfused 1 unit of blood. He hematology was also consulted secondary to anemia and DVT. Patient denies any recent injury, no recent travel, no history of previous deep vein thrombosis or clotting disorder, and no family history of clotting disorder. She denies being on control pills. She is a daily smoker. Apparently patient had been on oral iron in the past secondary to her anemia but it is caused upset stomach and she has not been taking it. Today's hemoglobin is 7.8. Patient is currently on her menstrual cycle. 09/11 Patient left leg is warm and swollen and with pain and tenderness 11/01. Patient given thrombectomy today with vascular surgery team. From medical perspective there is no contraindication to proceed. Patient also started on heparin drip and yesterday she had menstrual cycle which is becoming more heavy. Patient states that she has another bleed about 1 week earlier but yesterday came back again no abdominal pain. She does not follow-up with edge polisher as an outpatient and she agrees to see 1 while in house. She is currently kept on heparin drip with plan to switch to oral anticoagulant after the procedure with vascular surgery team 09/12 Still has pain in the left leg, lacerated Will go for thrombectomy today Yesterday could not do the procedure because of scheduling issues CREATIVE COORDINATOR evaluated patient is s/p ultrasound of the vaginal tract She needs follow-up outpatient Patient denies any other new symptoms alert with 09/13 Still has pain in the left leg, lacerated Will go for thrombectomy today Yesterday could not do the procedure because of scheduling issues CREATIVE COORDINATOR evaluated patient is s/p ultrasound of the vaginal tract: Reviewed showing large fibroids. Ovary obscured by bowel gas. Endometrium not visualized and recommended MRI. As per CREATIVE COORDINATOR patient may require hysterectomy down the road requiring optimization with iron therapy. CREATIVE COORDINATOR team signed off the case She needs follow-up outpatient with their service as an outpatient, patient inf ormed and she agrees. Patient denies any other new symptoms alert with Active Medications Generic Name Dose Route Start Last Admin Trade Name Freq PRN Reason Stop Dose Admin Alprazolam 0.25 mg 09/09/24 22:51 09/12/24 12:27 Alprazolam 0.25 Mg Tab PO 0.25 mg Q6HR PRN Administration Anxiety Heparin Sodium (Porcine) 0 unit 09/09/24 22:37 Heparin Sodium 1,000 Un/Ml (10ml Vl) IV PER PROTOCOL PRN Low PTT Protocol Hydromorphone HCl 0.5 mg 09/09/24 22:51 09/12/24 18:17 Hydromorphone 0.5 Mg/0.5 Ml Syringe IVP 0.5 mg Q3HR PRN Administration Moderate Pain (Scale 4 to 6) Hydromorphone HCl 1 mg 09/09/24 22:51 Hydromorphone 1 Mg/Ml 1 Ml Syringe IVP Q3HR PRN Severe Pain (Scale 7 to 10) Heparin Sodium/Sodium Chloride 250 mls @ 11.022 mls/hr 09/09/24 22:45 09/12/24 17:12 25,000 unit/ Sodium Chloride IV 0 units/kg/hr .[id number] BRIGITTE 0 mls/hr Titration Protocol 18 UNITS/KG/HR Ferric Sodium Gluconate 125 mg 110 mls @ 100 mls/hr 09/11/24 12:00 09/12/24 09:25 / Sodium Chloride IVPB 09/14/24 10:05 100 mls/hr DAILY BRIGITTE Administration Naloxone HCl 0.2 mg 09/09/24 22:51 Naloxone 0.4 Mg/Ml 1 Ml Vial IV Q2M PRN Opioid Reversal Ondansetron HCl 4 mg 09/09/24 22:51 Ondansetron 4 Mg/2 Ml Vial IVP Q8HR PRN Nausea And Vomiting Pantoprazole Sodium 40 mg 09/10/24 11:00 09/12/24 09:02 Pantoprazole 40 Mg/10 Ml Vial IVP 40 mg DAILY BRIGITTE Administration Objective - Vital Signs Vital signs: Vital Signs Temp 98.3 F 09/12/24 15:13 Pulse 68 09/12/24 15:13 Resp 16 09/12/24 15:13 BP 103/68 09/12/24 15:13 Pulse Ox 98 09/12/24 15:13 FiO2 Intake & Output 09/12/24 09/12/24 09/13/24 06:59 18:59 06:59 Intake Total 310 213.760 Balance 310 213.760 Weight 67.5 kg Intake: Intake, IV Titration 213.760 Amount Heparin Sod,Pork in 0.45% 213.760 NaCl 25,000 unit In 0.45 % NaCl 1 250ml.bag @ 18 UNITS/KG/HR 11.022 mls/hr IV .[id number] [facility] Rx#: [id number] Blood Product 310 Rc As-1 Unit 310 [id number] Other: Voiding Method Bedside Commode Bedside Commode # Voids 1 - Exam GENERAL: The patient is alert and oriented x3, not in any acute distress. Well d eveloped, well nourished. HEENT: Pupils are round and equally reacting to light. EOMI. No scleral icterus. No conjunctival pallor. Normocephalic, atraumatic. No pharyngeal erythema. No thyromegaly. CARDIOVASCULAR: S1 and S2 present. No murmurs, rubs, or gallops. PULMONARY: Chest is clear to auscultation, no wheezing , no crackles. ABDOMEN: Soft, nontender, nondistended, normoactive bowel sounds. No palpable organomegaly. MUSCULOSKELETAL: No joint swelling or deformity. -EXTREMITIES: No cyanosis, clubbing, or pedal edema. Left leg is swollen warm and erythematous NEUROLOGICAL: Gross neurological examination did not reveal any focal deficits. SKIN: No rashes. no petechiae. - Labs CBC & Chem 7: 09/12/24 05:57 09/12/24 05:57 Labs: Abnormal Lab Results - Last 24 Hours (Table) 09/10/24 09/10/24 09/12/24 Range/Units 07: 17:18 05:57 RBC (4.10-5.20) 10*6/uL Hgb (12.0-15.0) g/dL Hct (37.2-46.3) % MCV (80.0-97.0) fL MCH (27.0-32.0) pg MCHC (32.0-37.0) g/dL MPV (9.5-12.2) fL Eosinophils # (0.04-0.35) 10*3/uL APTT 57.7 H (22.0-30.0) sec Lupus Anticoag aPTT 155 H (<43) Sec(s) Lupus Anticoag PTT Mix 84 H (<43) Sec(s) Dil Lonnie Viper Venom 46 H (<44) Sec(s) Lupus Hexagonal Phase Positive A (Negative) Sodium (137-145) mmol/L Carbon Dioxide (22-30) mmol/L Glucose (74-99) mg/dL Crossmatch See Detail 09/12/24 09/12/24 Range/Units 05:57 05:57 RBC 3.72 L (4.10-5.20) 10*6/uL Hgb 8.3 L (12.0-15.0) g/dL Hct 26.4 L (37.2-46.3) % MCV 71.0 L (80.0-97.0) fL MCH 22.3 L (27.0-32.0) pg MCHC 31.4 L (32.0-37.0) g/dL MPV 8.9 L (9.5-12.2) fL Eosinophils # 0.36 H (0.04-0.35) 10*3/uL APTT (22.0-30.0) sec Lupus Anticoag aPTT (<43) Sec(s) Lupus Anticoag PTT Mix (<43) Sec(s) Dil Lonnie Viper Venom (<44) Sec(s) Lupus Hexagonal Phase (Negative) Sodium 134 L (137-145) mmol/L Carbon Dioxide 21 L (22-30) mmol/L Glucose 107 H (74-99) mg/dL Crossmatch Assessment and Plan Assessment: Acute DVT left lower extremity; unprovoked Ultrasound of the left lower extremity reveals an extensive DVT from the common iliac, common femoral, femoral vein. - Patient has been placed on IV heparin; neurosurgery on board - Given young age and unprovoked extensive DVT, will consult hematology -S/p mechanical thrombectomy on 09/11 Menorrhagia with large ovarian fibroids - Evaluated by CREATIVE COORDINATOR team. Recommend optimization of hemoglobin with iron therapy. Patient required blood pressure follow-up. If no improvement may require hysterectomy. Patient is aware of this. And she told me she is agreeable for close outpatient follow-up upon discharge Severe symptomatic anemia; Patient does report history of iron deficiency anemia secondary to menorrhagia -Patient has received 1 unit of packed RBC - Hemoglobin of 7.2 prior to blood transfusion Will monitor H&H every 6 hours Order iron studies Continue with IV iron as per hematology team Menorrhagia Consult CREATIVE COORDINATOR team Hypercalcemia; likely secondary to dehydration; continue with IV fluid; monitor electrolytes DVT prophylax; IV heparin CODE STATUS; full code
[2024-09-12] MEDS: IOPAMIDOL-370 100ML BTL INJ ONE (19:45)
--- NOTE | 2024-09-13 00:41 | IR ---
Fluoroscopy INDICATION: Pain FINDINGS: Fluoroscopy time: 16.7 minutes Total dose area product (DAP) in uGy*m?, mGy*cm? (or similar): 123 Images obtained: 656. Images document the procedure. IMPRESSION: 1. Documentation of fluoroscopy. [facility], Workstation: [facility], 09/13/2024 12:39 AM
[2024-09-13 07:46] LABS: HCT 24.5 % (37.2-46.3); HGB 7.6 g/dL (12.0-15.0); MCH 22.6 pg (27.0-32.0); MCHC 31.0 g/dL (32.0-37.0); MCV 72.7 fL (80.0-97.0); Platelet Count 308 10*3/uL (140-440); RBC 3.37 10*6/uL (4.10-5.20); RDW 19.1 % (11.5-14.5); WBC 8.94 10*3/uL (4.50-10.00)
--- NOTE | 2024-09-13 07:59 | P.OP ---
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 Procedure(s) Performed: Ultrasound guided left popliteal vein access Percutaneous thrombectomy of the IVC, left common iliac, external iliac, femoral and popliteal vein Intravascular ultrasound of the IVC, left common, external iliac, femoral and popliteal veins Percutaneous balloon angioplasty of the left common, external iliac veins with [id number] balloon Conscious sedation Anesthesia: local Surgeon: Lennox Hernandez Estimated Blood Loss (ml): 200 Pathology: none sent Condition: stable Disposition: PACU Indications for Procedure: 34 year old female with extensive DVT from the iliac to popliteal vein on the left with significant edema and pain presents for percutaneous thrombectomy and possible stenting. Operative Findings: Extensive thrombus from the iliac to popliteal vein on the left Severe distal IVC and bilateral iliac vein stenosis with large internal iliac vein collateral Description of Procedure: After written and informed consent was obtained with the patient and all risk, benefits and complications were described the patient was brought to the endovascular suite laid in a prone position. The area of the left popliteal space was prepped and draped in usual sterile fashion. Timeout was performed normal fashion. Under ultrasound the popliteal vein was located and shown to have thrombus and was partially compressible. Utilizing ultrasound the vein was cannulated with a multipurpose needle and utilizing Seldinger technique an 8 Czech sheath was placed. Venogram was then obtained demonstrating thrombus throughout the left lower extremity popliteal, femoral with occlusive thrombus noted at the femoral and iliac veins with minimal reconstitution to the IVC. 035 Glidewire was then placed followed by a quick cross catheter and the thrombus, occlusive lesions were crossed and the IVC was entered. Once across into the IVC a venogram was obtained demonstrating good intraluminal access. Intravascular ultrasound catheter was then placed and the intraluminal vessel was interrogated demonstrating large amount of thrombus and stenosis noted at the confluence and IVC. The wire was then exchanged for an 035 Glidewire advantage which was placed into the internal jugular vein. A Inari sheath was then placed in the popliteal vein and utilizing Inari clottreiver after patient was administered heparin multiple passes were performed with large amount of acute and chronic thrombus removed. Venogram was obtained demonstrating improved flow with resolution of 90% of the thrombus. There was still an area of severe occlusive disease at the confluence of the bilateral common iliac veins into the distal aspect of the inferior vena cava. Intravascular ultrasound was then placed once again with demonstration of resolution of the thrombus but severe stenosis noted at the confluence. This did extend into the distal aspect of the IVC. Due to the severe stenosis balloon angioplasty was then performed with a 14mm balloon to assist with patency. Venogram was then obtained again demonstrating minimal improvements and due to the fact that it is at the confluence she will likely require bilateral stenting in the future. Her acute issue has been resolved with the thrombectomy and balloon angioplasty and therefore the procedure was concluded. She will require continuous anticoagulation likely for life. All guidewires and catheters were then removed suture was placed at the access site and pressure was held for hemostasis. Once hemostatic the area was cleansed and dressings were placed. Patient's left leg was then wrapped from the foot to the thigh. She tolerated the procedure well and was sent back to her room for recovery.
[2024-09-13] MEDS: Apixaban Initiation Dose--VTE 5 MG TAB PO SCH (10:43)
--- NOTE | 2024-09-13 11:06 | P.PN ---
Subjective Progress Note Date: 09/13/24 Principal diagnosis: Left lower extremity deep vein thrombosis Patient seen and examined today as a follow-up. Yesterday she underwent percutaneous thrombectomy of the IVC, left common iliac, external iliac, femoral and popliteal vein with percutaneous balloon angioplasty of the left common, external iliac veins. Patient states she is feeling much better. Pain is improved as well as swelling. Currently still has IV heparin drip infusing. Has Julio wrap to left lower extremity with no reported bleeding. Hemoglobin 7.6. Objective - Vital Signs Vital signs: Vital Signs Temp 96.9 F L 09/13/24 03:36 Pulse 85 09/13/24 03:36 Resp 18 09/13/24 03:36 BP 99/64 09/13/24 03:36 Pulse Ox 100 09/13/24 03:36 FiO2 Intake & Output 09/12/24 09/13/24 09/13/24 18:59 06:59 18:59 Intake Total 363.760 0 Balance 363.760 0 Weight 67 kg Intake: IV 150 Intake, IV Titration 213.760 0 Amount Heparin Sod,Pork in 0.45% 213.760 0 NaCl 25,000 unit In 0.45 % NaCl 1 250ml.bag @ 18 UNITS/KG/HR 11.022 mls/hr IV .[id number] [facility] Rx#: [id number] Other: Voiding Method Bedside Commode Bedside Commode Bedpan # Voids 1 2 - Exam General appearance: The patient is alert, oriented, appears in no acute distress. HET: Head is normocephalic and atraumatic. . Neck: Supple. Heart: Regular. Lungs: Equal expansion, normal respiratory effort. Abdomen: Soft, nondistended. Extremities: Normal skin color and turgor. Left lower extremity swelling, swelling is improved in the thigh. Puncture wound to left popliteal region with suture without any bleeding, no hematoma. Neurological: Alert and oriented. - Labs CBC & Chem 7: 09/13/24 06:35 09/12/24 05:57 Labs: Abnormal Lab Results - Last 24 Hours (Table) 09/10/24 09/13/24 09/13/24 Range/Units 17:18 06:35 06:35 RBC 3.37 L (4.10-5.20) 10*6/uL Hgb 7.6 L (12.0-15.0) g/dL Hct 24.5 L (37.2-46.3) % MCV 72.7 L (80.0-97.0) fL MCH 22.6 L (27.0-32.0) pg MCHC 31.0 L (32.0-37.0) g/dL MPV 8.9 L (9.5-12.2) fL APTT 77.6 H (22.0-30.0) sec Lupus Anticoag aPTT 155 H (<43) Sec(s) Lupus Anticoag PTT Mix 84 H (<43) Sec(s) Dil Lonnie Viper Venom 46 H (<44) Sec(s) Lupus Hexagonal Phase Positive A (Negative) Assessment and Plan Assessment: 1. Acute on chronic left iliac, femoral and popliteal vein deep vein thrombosis status post percutaneous thrombectomy of the IVC, left common iliac, external iliac, femoral and popliteal vein. 2. Percutaneous balloon angioplasty of the left common, external iliac veins 3. 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 Iron deficiency anemia secondary to menorrhagia 5. Daily smoker Plan: 1. Start Eliquis and discontinue heparin 2. Suture removed from left popliteal region 3. Encourage ambulation 4. Apply SHIRLEY hose to left lower extremity 5. Patient is cleared from vascular surgery for discharge. Discharge instructions reviewed with patient. Patient seemingly understands and verbalized understanding. Thank you for this consultation, we will sign off at this time. Patient instructed to follow-up with vascular surgery in a couple weeks. The impression and plan of care has been dictated as directed. Dr. Robles I performed a history and examination of this patient, discussed the same with the dictator. I agree with the dictator's note ,documented as a scribe. Any additional findings or plans will be noted.
[2024-09-13 12:09] VITALS: RESP 16; TEMP 98.1
[2024-09-13 14:16] VITALS: BP 105/69; PULSE 88
== END 2024-09-13 13:23 | disposition left against medical advice (07) | DRG 169 ==
LOC: EC 17:22 → 3SCARD 22:45
PROVIDERS: ADMIT Hospitalist; ATTEND Hospitalist
PROC: 30233N1 Transfusion of Nonautologous Red Blood Cells into Peripheral Vein, Percutaneous Approach (ICD-10-PCS; 2024-09-11)
PROC: 067G3ZZ Dilation of Left External Iliac Vein, Percutaneous Approach (ICD-10-PCS; 2024-09-12)
PROC: 067Y3ZZ Dilation of Lower Vein, Percutaneous Approach (ICD-10-PCS; 2024-09-12)
PROC: B54CZZ3 Ultrasonography of Left Lower Extremity Veins, Intravascular (ICD-10-PCS; 2024-09-12)
PROC: B51C1ZZ Fluoroscopy of Left Lower Extremity Veins using Low Osmolar Contrast (ICD-10-PCS; 2024-09-12)
PROC: 06CN3ZZ Extirpation of Matter from Left Femoral Vein, Percutaneous Approach (ICD-10-PCS; principal; 2024-09-12 15:00)
PROC: 06CG3ZZ Extirpation of Matter from Left External Iliac Vein, Percutaneous Approach (ICD-10-PCS; 2024-09-12 15:00)
PROC: 067D3ZZ Dilation of Left Common Iliac Vein, Percutaneous Approach (ICD-10-PCS; 2024-09-12 15:00)
PROC: 06C03ZZ Extirpation of Matter from Inferior Vena Cava, Percutaneous Approach (ICD-10-PCS; 2024-09-12 15:00)
PROC: 06CD3ZZ Extirpation of Matter from Left Common Iliac Vein, Percutaneous Approach (ICD-10-PCS; 2024-09-12 15:00)
PROC: B549ZZ3 Ultrasonography of Inferior Vena Cava, Intravascular (ICD-10-PCS; 2024-09-12 15:00)
PROC: 04CY3ZZ Extirpation of Matter from Lower Artery, Percutaneous Approach (ICD-10-PCS; 2024-09-12 15:00)
DX: I82.432 Acute embolism and thrombosis of left popliteal vein (principal); I82.422 Acute embolism and thrombosis of left iliac vein; I82.412 Acute embolism and thrombosis of left femoral vein; I87.1 Compression of vein; I82.4Z2 Acute embolism and thrombosis of unspecified deep veins of left distal lower extremity; I70.203 Unspecified atherosclerosis of native arteries of extremities, bilateral legs; D50.0 Iron deficiency anemia secondary to blood loss (chronic); F17.210 Nicotine dependence, cigarettes, uncomplicated; N92.0 Excessive and frequent menstruation with regular cycle; E83.52 Hypercalcemia; E86.0 Dehydration; I82.512 Chronic embolism and thrombosis of left femoral vein; I82.522 Chronic embolism and thrombosis of left iliac vein; I82.532 Chronic embolism and thrombosis of left popliteal vein; D25.9 Leiomyoma of uterus, unspecified; Z91.198 Patient's noncompliance with other medical treatment and regimen for other reason
CPT/HCPCS: 36415; 37187; 37252; 37253; 71275; 75820; 75825; 76856; 80048; 80053; 81025; 82607; 82728; 82746; 83540; 83550; 84443; 84703; 85025; 85027; 85610; 85613; 85730; 86147; 86850; 86900; 86901; 86920; 93005; 93976; 96361; 96365; 99285